=== PATIENT | female | born 1990 | race Two or more races ===

== ENCOUNTER 2017-10-25 08:00 | Outpatient (CLI) | payer OTHER ==
[2017-10-25 19:02] LABS: HGB - HEMOGLOBIN 10.3 g/dL (12.0-16.0); MEAN CORPUSCULAR HEMOGLOBIN 28.6 pg (27.0-31.0); MEAN CORPUSCULAR HGB CONC 33.4 g/dL (32.0-36.0); MEAN CORPUSCULAR VOLUME 85.6 fL (81.0-99.0); MEAN PLATELET VOLUME 8.9 fL (7.9-10.8); RED BLOOD COUNT 3.6 10^6/uL (4.20-5.40); WHITE BLOOD COUNT 9.2 x10^3/uL (4.8-10.8)
== END 2017-10-25 08:01 | disposition home or self-care (01) ==
LOC: LAB.N 08:00
PROVIDERS: ATTEND Nurse Practitioner Obstetrics & Gynecology
DX: Z34.90 Encounter for supervision of normal pregnancy, unspecified, unspecified trimester (principal); Z36.9 Encounter for antenatal screening, unspecified
CPT/HCPCS: 36415; 82950; 86850; 86900; 86901

== ENCOUNTER 2017-11-13 10:40 | Outpatient (CLI) | payer OTHER ==
[2017-11-13 10:54] VITALS: BP 128/55
[2017-11-13] MEDS ORDERED: LACTATED RINGERS 1,000 ML IV ONE (11:01)
[2017-11-13] MEDS ORDERED: ONDANSETRON 4 MG/2 ML VIAL IVP SCH (12:00)
== END 2017-11-13 13:00 | disposition home or self-care (01) ==
LOC: WFO 10:40
PROVIDERS: ATTEND Nurse Practitioner Obstetrics & Gynecology
DX: O21.2 Late vomiting of pregnancy (principal); Z3A.30 30 weeks gestation of pregnancy
CPT/HCPCS: 99213

== ENCOUNTER 2017-12-14 08:00 | Outpatient (CLI) | payer OTHER | END 2017-12-14 08:01 | disposition home or self-care (01) | LOC: LAB.R 08:00 | PROVIDERS: ATTEND Nurse Practitioner Obstetrics & Gynecology | DX: Z36.85 Encounter for antenatal screening for Streptococcus B (principal) | CPT/HCPCS: 87797 ==

== ENCOUNTER 2017-12-19 15:02 | Outpatient (CLI) | payer OTHER | END 2017-12-19 15:03 | disposition home or self-care (01) | LOC: LAB.N 15:02 | PROVIDERS: ATTEND Nurse Practitioner Obstetrics & Gynecology | DX: O99.013 Anemia complicating pregnancy, third trimester (principal) | CPT/HCPCS: 36415; 85018 ==

== ENCOUNTER 2018-01-11 03:42 | Inpatient (IN) | payer OTHER ==
--- NOTE | 2018-01-11 05:24 | HISTORY & PHYSICAL EXAMINATION ---
Admit History - Instructions [place]/Slash: -Left hand click circles element as positive or present. -Right hand click slashes element as negative or not present. - Visit Reason Visit Reason: Membranes rupture (gross rupture for CAF @ 0255) - : 1 Parity: 0 Premature: 0 Ectopic: 0 : 0 Care: positive: [facility] (transfer from [facility] @ 26 weeks' gestation), [facility]- [facility] Risk/History: positive: None Complications This : positive: None Smoking Status: Never smoker - Mother's Labs Mother's Blood Type: positive: O Mother's RH: positive: Positive GBS: positive: Group B Step Negative Rubella Status: positive: Immune Meds/Allgy - Allergies Allergies/Adverse Reactions: Allergies Allergy/AdvReac Type Severity Reaction Status Date / Time cephapirin [From Cefadyl] Allergy Rash Verified 11/13/17 10:56 erythromycin base Allergy Rash Verified 11/13/17 10:56 [From Pediazole] sulfisoxazole Allergy Rash Verified 11/13/17 10:56 [From Pediazole] Physical - Abdominal Exam Contraction Frequency (min/apart): q4-7 Contraction Intensity: positive: Mild Uterine Resting Tone: positive: Soft - Monitoring Heart Rate Baseline: 135 Strip Review: positive: Category I - Presentation Presentation: positive: Vertex - Vaginal Exam Membranes: positive: Membranes ruptured Dilation (in cm): 1 Effacement (%): 80 Station: positive: -3 Cervical Position: positive: Midposition (soft) - Speculum Exam Speculum Exam Performed: positive: No Findings: positive: Gross leak - Other Notes Labor Progress Note/Additional Text: Nancy Shah is a 27 y/o @ 39 weeks' gestation by 1st trimester US who presents today w/ complaint of SROM for CAF @ 0255. She received care @ [facility] x2 visits & transferred care to [facility] @ 26 weeks' gestation. She received consistent care for a total of 10 visits & gained a total of 27 pounds throughout the course of her . She has had an uncomplicated course & screened negative for GBS @ 36 weeks' gestation. She is cramping some & is jovan q 4-7 minutes on admission but is not in active labor. Her hope is for limited intervention & an unmedicated delivery. She is well-supported by her , Teja. 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, completing graduate education@ present ROS: GEN: No fever/chills, slight fatigue HEENT: No CHAUDHARI/vision changes RESP: Some SOB w/ exertion, no dyspnea, no cough, no wheezing CARDIAC: No CP, palpitations GI: No N/V/D : +LOF, no VB, no lesions OB: +FM, +LOF, no VB, occ cramping, no painful contractions MS: +lumbar pain, FROM SKIN: No lesion, no pruritus NEURO: No numbness, tingling, weakness PSYCH: Excited, no anxiety/depression PE: GEN: AAOx3, NAD WA gravid female HEENT: Grossly normocephalic, atraumatic RESP: Lungs b/l CTA t/o CARDIAC: RRR nls1s2, no murmur GI: abd gravid, NT, ND, palpable movement, lie longitudinal, presentation cephalic, EFW 6.5-7# : No lesion, gross SROM for CAF OB: EFM: BL 135bpm, +accels, no decels, mod ro; TOCO: UCs q4-7 minutes x60-80 seconds, palpably mild, SVE per RN: /-3, gross SROM MS: FROM t/o, no edema SKIN: +tattoos, no erythema, no lesion, warm, well-perfused, C/D/I NEURO: No focal deficit PSYCH: Pleasantly conversant w/o anxiety/depression, normal mood & affect Plan for Labor - Plan For Labor Plan for Labor: ASSESSMENT: 27 y/o @ 39 weeks' EGA by first trimester US, SROM x2.5 hours for CAF, not in labor GBS neg FHTs cat I Adequate pain control w/o analgesia/anesthesia; desires unmedicated delivery PLAN: 1. Reviewed SROM & options for management, including immediate IOL w/ po misoprostol, given cervical status, vs. expectant management, pt elects expectant management for now, will reassess @ 6-8 hours s/p SROM 2. Reviewed physiology of labor & anticipatory guidance 3. Encouraged maternal rest 4. Admit to inpt for SROM & anticipate labor 5. Limit SVE secondary to SROM no labor; reassess cervical status w/ clinical indication 6. Reviewed plan of care w/ pt, partner & RN @ bedside; all in agreement, without concerns.
[2018-01-11] MEDS ORDERED: SODIUM CHLORIDE FLUSH 0.9% 10 ML SYRINGE IVP PRN (05:35)
[2018-01-11] MEDS ORDERED: ONDANSETRON 4 MG/2 ML VIAL IVP PRN (05:37)
[2018-01-11] MEDS ORDERED: NALBUPHINE 20 MG/ML AMP IVP PRN (05:37)
--- NOTE | 2018-01-11 09:29 | PROVIDER PROGRESS NOTE ---
Labor Progress Note - Uterine Monitoring Uterine Monitoring Mode: positive: External toco : 4-7 Contraction Intensity: positive: Mild Uterine Resting Tone: positive: Soft - Monitoring Monitor Mode: positive: External ultrasound Heart Rate Baseline: 140bpm Heart Rate Variability: positive: Moderate (6-25 bmp) Accelerations: positive: Present, 15x15 Decelerations: positive: None Strip Review: positive: Category I - Vaginal Exam Dilation (in cm): deferred - Labor Progress Note Labor Progress Note/Additional Text: S: Nancy is feeling well. She reports some cramping. Some mucoid vaginal d/ c. Teja is at the bedside, supportive. O: T: 98.1, HR 60 RR 16 BP 130/70 EFM: BL 140bpm, + accels, no decels, mod ro TOCO: UCs occasional, mild to palpation SVE deferred secondary to PROM A: 27 y/o @ 39w0d by 1st trimester US SROM x7 hours, no labor GBS negative SROM for CAF, afebrile FHTs cat I Adequate pain control w/o desire for analgesia/anesthesia P: 1. Reviewed management options & risks of expectant management vs. IOL 2. Pt elects buccal misoprostol 25mcg q 4 hours, PARQ held 3. Reviewed pain management options 4. Reviewed optimal maternal positioning to encourage rotation & descent 5. Minimize SVE, reassess only w/ clear clinical indication; otherwise, continue buccal misoprostol per protocol 6. Reviewed plan of care w/ pt, partner & RN @ bedside; all in agreement, without concerns.
[2018-01-11] MEDS: LACTATED RINGERS 1,000 ML IV SCH ×3 (10:32→19:39)
[2018-01-11] MEDS: SODIUM CHLORIDE FLUSH 0.9% 10 ML SYRINGE IVP SCH ×2 (10:36→17:57)
[2018-01-11 10:50] LABS: BASOPHILS % (AUTO) 0.5 %; EOSINOPHILS # (AUTO) 0.1 10^3/uL (0.0-0.7); EOSINOPHILS % (AUTO) 0.8 %; HGB - HEMOGLOBIN 10.2 g/dL (12.0-16.0); LYMPHOCYTES # (AUTO) 2.1 10^3/uL (1.5-3.5); LYMPHOCYTES % (AUTO) 28.8 %; MEAN CORPUSCULAR HEMOGLOBIN 26.9 pg (27.0-31.0); MEAN CORPUSCULAR VOLUME 81.5 fL (81.0-99.0); MEAN PLATELET VOLUME 9.6 fL (7.9-10.8); MONOCYTES # (AUTO) 0.5 10^3/uL (0.0-1.0); MONOCYTES % (AUTO) 6.3 %; NEUTROPHILS # (AUTO) 4.7 10^3/uL (1.5-6.6); NEUTROPHILS % (AUTO) 63.6 %; PLT - PLATELET COUNT 115 10^3/uL (130-450); RED BLOOD COUNT 3.79 10^6/uL (4.20-5.40); RED CELL DISTRIBUTION WIDTH 16.2 % (12.0-15.0); WHITE BLOOD COUNT 7.3 x10^3/uL (4.8-10.8)
[2018-01-11] MEDS: miSOPROStol 100 MCG TABLET BC SCH ×4 (10:51→20:56)
--- NOTE | 2018-01-11 16:30 | PROVIDER PROGRESS NOTE ---
Labor Progress Note - Uterine Monitoring Uterine Monitoring Mode: positive: External toco Contraction Frequency (min/apart): 3-7min Contraction Intensity: positive: Mild Uterine Resting Tone: positive: Soft - Monitoring Monitor Mode: positive: External ultrasound Heart Rate Baseline: 150 Heart Rate Variability: positive: Moderate (6-25 bmp) Accelerations: positive: Present, 15x15 Decelerations: positive: None Strip Review: positive: Category I - Vaginal Exam Dilation (in cm): deferred - Labor Progress Note Labor Progress Note/Additional Text: S: Nancy reports that she is having more discomfort w/ her uterine contractions. Cramping, primarily & some LBP. Ongoing leakage of CAF. Some mucoid bloody show. Does not desire analgesia/anesthesia. Reports heartburn that is bothering her. O: VS: T: 98.4; HR 59bpm, RR 18, BP 128/83 EFM: BL 150bpm, +accels, no decels, mod ro TOCO: UCs erratic, q 3-7 min x60-80 seconds, mild to palpation SVE deferred secondary to no clinical indication A: 27y/o @ 39w0d by 1st trimester US s/p SROM @ 0255 for CAF, total ruptured duration of 13.5 hours, afebrile GBS negative FHTs cat I Adequate pain control w/o analgesia/anesthesia s/p 2 total doses of buccal misoprostol, last @ 1500, not in active labor P: 1. Continue misoprostol 25mcg buccally q 4 hours 2. Reviewed pain management options 3. Reviewed labor physiology 4. Reviewed optimal maternal positioning 5. Famotodine 20mg IVP BID PRN heartburn 6. Reassess cervical status w/ clear clinical change
[2018-01-11] MEDS ORDERED: PROMETHAZINE INJ 25 MG in SODIUM CHLORIDE 0.9% 50 ML IV PRN (18:00)
[2018-01-11] MEDS ORDERED: FAMOTIDINE 20 MG/50 ML 50 ML IV SCH (21:00)
[2018-01-12] MEDS ORDERED: OXYTOCIN 10 UNIT/ML VIAL IM ONE (00:55)
[2018-01-12] MEDS ORDERED: OXYTOCIN 10 UNIT/ML VIAL ONE (01:02)
[2018-01-12] MEDS ORDERED: LIDOCAINE 1% 50 ML MDV ONE (01:07)
[2018-01-12] MEDS ORDERED: OXYTOCIN/SODIUM CHLORIDE 500 ML IV ONE (01:33)
--- NOTE | 2018-01-12 01:53 | DELIVERY NOTE ---
Delivery Note - Labor Labor: positive: Other (induced w/ misoprostol) - Delivery Method Infant Delivery Method: positive: Spontaneous vaginal delivery - Cervical Ripening Method Cervical Ripening Method: positive: Misoprostil - Presentation Presentation: positive: Vertex, Compound (right hand), KERVIN - right occiput anterior - Nuchal Cord Nuchal Cord: positive: None - Anesthetic Anesthetic Type: Anesthetic: positive: Lidocaine - 1% plain Volume: positive: Other (10mL) - Amniotic Fluid Description Amniotic Fluid Description: positive: Clear (SROM 01/11/2018 @ 0255) - Episiotomy Type Episiotomy Type: positive: None - Laceration Laceration: positive: 2nd degree - Suture Suture Type: positive: Vicryl Suture Size: positive: 2-0, 3-0 - Delivery Outcome Delivery Outcome: positive: Livebirth - : positive: Placed in direct skin contact with mother, Stimulated, Warmed , [place] used sex: positive: Male - Cord Cord: positive: 3 vessels - Placenta Placenta: positive: Intact, Spontaneous - Estimated Blood Loss Estimated Blood Loss (in cc): 300 - Post Delivery Events Post Delivery Events: positive: No post delivery events - Delivery Comments (Free Text/Narrative) Delivery Comments (Free Text/Narrative): Nancy Shah is a 27 y/o [id number] whose care was complicated only by mild anemia. She received care in the first trimester & had dates that were concordant between ultrasound & LMP; she had consistent care x10 visits. She presented w/ complaint of LOF, beginning 2017 @ 0255, CAF. She had a total ruptured duration of 21hrs, 58minutes. She received misoprostol 25mcg buccally [id number] & entered active labor shortly after her 3rd dose at 20:56, when she was 3cm. FHTs were electronically monitored t/o & were consistently category I. She was found to be completely dilated @ 00:26, for a total first stage duration of 3hrs, 30 minutes. She did not receive analgesia or anesthesia for her labor process. She pushed w/ spontaneous urge on all fours & then utilized the stool to achieve of viable male in KERVIN position w/ compound R hand over 2nd degree perineal laceration @ 0053, for a total 2nd stage duration of 27 minutes. vigorous w/ spontaneous, lusty cry. Placed to maternal abd for drying/stim. Significant meconium passed immediately s/p delivery. Delayed cord clamping until cessation of pulsation, then cord clamped x2 by CNM, cut by FOB. 3VC noted, cord blood obtained. AMTSL w/ 10units IM Pitocin. Placenta del spont & intact, Shaquille, @ 0057, for a total 3rd stage duration of 4 minutes. Fundus firm U-1. Vagina & perineum inspected & 2nd degree perineal laceration noted, repaired s/p infiltration w/ 10mL 1% lidocaine using 2-0 & 3-0 vicryl. Hemostatic & well-approximated. EBL 300mL. Mother & infant stable. Apgars 8/9 , weight 6#2oz. Actively w/ 10/10 latch w/in 30 minutes of delivery.
[2018-01-12] MEDS ORDERED: WITCH HAZEL/GLYCERIN 1 EACH MED..PAD TOP PRN (01:57)
[2018-01-12] MEDS ORDERED: OXYTOCIN/SODIUM CHLORIDE 250 ML IV ONE (01:57)
[2018-01-12] MEDS ORDERED: MAGNESIUM HYDROXIDE 2,400 MG/30 ML UDC PO PRN (01:57)
[2018-01-12] MEDS ORDERED: HYDROCORTISONE 1% CREAM 28 GM TUBE PR PRN (01:57)
[2018-01-12] MEDS ORDERED: HYDROCORTISONE/PRAMOXINE 10 GM PR PRN (01:57)
[2018-01-12 06:25] LABS: BASOPHILS % (AUTO) 0.1 %; HGB - HEMOGLOBIN 9.2 g/dL (12.0-16.0); LYMPHOCYTES # (AUTO) 1.6 10^3/uL (1.5-3.5); LYMPHOCYTES % (AUTO) 11.7 %; MEAN CORPUSCULAR HEMOGLOBIN 26.4 pg (27.0-31.0); MEAN CORPUSCULAR HGB CONC 32.3 g/dL (32.0-36.0); MEAN CORPUSCULAR VOLUME 81.6 fL (81.0-99.0); MEAN PLATELET VOLUME 9.8 fL (7.9-10.8); MONOCYTES # (AUTO) 0.8 10^3/uL (0.0-1.0); NEUTROPHILS # (AUTO) 11.5 10^3/uL (1.5-6.6); NEUTROPHILS % (AUTO) 82.2 %; PLT - PLATELET COUNT 119 10^3/uL (130-450); RED BLOOD COUNT 3.49 10^6/uL (4.20-5.40); RED CELL DISTRIBUTION WIDTH 16.8 % (12.0-15.0)
[2018-01-12] MEDS: ACETAMINOPHEN 500 MG TABLET PO SCH ×3 (06:40→22:17)
[2018-01-12] MEDS: DOCUSATE SODIUM 100 MG CAPSULE PO SCH ×2 (09:32→22:18)
[2018-01-12] MEDS: CELECOXIB 100 MG CAPSULE PO SCH ×2 (09:33→22:17)
[2018-01-12] MEDS: SODIUM CHLORIDE FLUSH 0.9% 10 ML SYRINGE IVP SCH ×2 (10:13→10:14)
[2018-01-12] MEDS ORDERED: RHO(D) IMMUNE GLOBULIN 300 MCG SYRINGE IM SCH (13:48)
--- NOTE | 2018-01-12 14:51 | PROVIDER PROGRESS NOTE ---
Subjective - Prog Note Date Prog Note Date: 01/12/18 Prog Note Time: 14:49 - Subjective Pt reports feeling: Improved Subjective: Nancy is feeling well. She is ambulating & voiding w/o difficulty. She reports adequate pain control w/ non-opioid analgesia. She reports minimal vaginal bleeding. She is tolerating po intake & passing flatus. She is well w/o discomfort. She feels very positively about her labor/ delivery experience. Her , Teja, is present at the bedside & is involved & very supportive, practicing [id number] w/ their , Ruben. He will have 10 days off from work & Nancy's mother will arrive today to stay for 3 weeks to assist her at home w/ her . Objective - Vital Signs/Intake & Output Reviewed Vital Signs: Yes Vital Signs: Vital Signs x48h Temp Pulse Resp BP Pulse Ox 01/12/18 11:15 36.9 C 70 16 128/63 99 01/12/18 08:20 36.8 C 72 16 118/59 L 99 Intake & Output: Intake & Output 01/09/18 01/10/18 01/11/18 01/12/18 23:59 23:59 23:59 23:59 Intake Total 1500 Output Total 600 Balance 1500 -600 - Objective General Appearance: positive: No acute distress, Alert Eyes Bilateral: positive: Normal inspection, PERRL, EOMI Respiratory: positive: Chest non-tender, No respiratory distress, Breath sounds nml Cardiovascular: positive: Regular rate & rhythm, No murmur Abdomen: positive: Non-tender, No distention, Other (FFU-1) Skin: positive: Color nml, No rash, Warm, Dry Extremities: positive: Non-tender, Full ROM, Nml appearance, No pedal edema. negative: Calf tenderness Neurologic/Psychiatric: positive: Oriented x3, CN's nml (2-12), Motor nml, Sensation nml, Mood/affect nml Comments/Other: breasts b/l s, nt; nipples b/l intact & everted, colostrum readily expressed perineum w/ stitches intact & well-approximated, no erythema, mild edema, no ecchymosis; mod lochia rubra - Lab Results Fish Bones: 01/12/18 06:00 Other Labs: Lab Results x24hrs 01/12/18 01/12/18 Range/Units 06:07 06:00 WBC 14.0 H (4.8-10.8) x10^3/uL RBC 3.49 L (4.20-5.40) 10^6/uL Hgb 9.2 L (12.0-16.0) g/dL Hct 28.5 L (37.0-47.0) % MCV 81.6 (81.0-99.0) fL MCH 26.4 L (27.0-31.0) pg MCHC 32.3 (32.0-36.0) g/dL RDW 16.8 H (12.0-15.0) % Plt Count 119 L (130-450) 10^3/uL MPV 9.8 (7.9-10.8) fL Neut # 11.5 H (1.5-6.6) 10^3/uL Lymph # 1.6 (1.5-3.5) 10^3/uL [place] # 0.8 (0.0-1.0) 10^3/uL Eos # 0.0 (0.0-0.7) 10^3/uL Baso # 0.0 (0.0-0.1) 10^3/uL Absolute Nucleated RBC 0.00 x10^3/uL Nucleated RBC % 0.0 /100WBC Blood Type O NEGATIVE Maternal Bleed NEGATIVE (NEGATIVE) Assessment/Plan - Problem List (1) (normal spontaneous vaginal delivery) Impression: A: 27 y/o [id number] s/p w/ 2nd degree perineal laceration w/ repair, PPD#0 Normal uterine involution Adequate pain control w/ nonopioid analgestia well P: 1. support & anticipatory guidance provided 2. Routine care 3. Anticipate D/C home PPD#2
[2018-01-12] MEDS: FERROUS SULFATE 325 MG TABLET PO SCH (19:03)
[2018-01-13] MEDS: ACETAMINOPHEN 500 MG TABLET PO SCH (06:11)
--- NOTE | 2018-01-13 06:42 | Discharge Plan ---
Discharge Plan Disposition: 01 Home, Self Care Condition: Good Diet: Regular Activity Restrictions: pelvic rest x6 weeks Shower Restrictions: No Driving Restrictions: No Weight Bearing: Full Weight Instruction Topics: Vaginal After, Breastfeed How To, Jaundice Signs Inf , Exercises Kegel Additional Instructions or Follow Up instructions: follow up appointment w/ Marie Best CNM @ 1 week s/p delivery No Smoking: If you smoke, Please STOP! Call for help. Follow-up with: Marie Best CNM, DUNCAN [Provider Admit Priv/Credential] -
--- NOTE | 2018-01-13 06:45 | DISCHARGE SUMMARY ---
"Discharge Summary Admit Date: 01/11/18 Discharge Date: 01/13/18 Discharging Provider: DEIDRE Code Status: Attempt Resuscitation Condition at Discharge: Good Discharge Disposition: 01 Home, Self Care Discharge Facility Name: [facility] - DIAGNOSES Admission Diagnoses: LEAKAGE OF AMNIOTIC FLUID @ TERM Discharge Diagnoses with Status of Each Condition: 2ND DEGREE PERINEAL LACERATION W/ REPAIR - HPI History of Present Illness: SHAINA IS A 27 Y/O [id number] WHO WAS ADMITTED NOT IN LABOR W/ ROM @ TERM. SHE ELECTED MISOPROSTOL ADMINISTRATION BUCCALLY & RECEIVED 3 TOTAL DOSES. SHE PROGRESSED READILY TO COMPLETE DILATATION & DELIVERED VAGINALLY OVER A 2ND DEGREE PERINEAL LACERATION, WHICH WAS REPAIRED. - CONSULTS | PROCEDURES Procedures: AUGMENTATION OF LABOR FOR PROM REPAIR OF 2ND DEGREE PERINEAL LACERATION - HOSPITAL COURSE Hospital Course: , SHAINA IS AMBULATING & VOIDING W/O DIFFICULTY. HER PAIN IS WELL- CONTROLLED W/ NON-OPIOID ANALGESIA. SHE IS PASSING FLATUS & TOLERATING PO INTAKE. SHE IS WELL W/O DIFFICULTY. SHE IS WELL-SUPPORTED BY HER , WHO WILL HAVE 10 DAYS OFF TO ASSIST HER AT HOME & SHE HAS ADDITIONAL EXCEPTIONAL SOCIAL SUPPORT. SHE HAS MINIMAL LOCHIA RUBRA & MINIMAL PERINEAL DISCOMFORT. SHE IS ABLE TO FULLY ARTICULATE PP WARNING S/SX, INCLUDING PP DEPRESSION S/SX, AND PP AFTERCARE INSTRUCTIONS. SHE IS READY TO LEAVE THE HOSPITAL. - ALLERGIES Allergies/Adverse Reactions: Allergies Allergy/AdvReac Type Severity Reaction Status Date / Time cephapirin [From Cefadyl] Allergy Rash Verified 11/13/17 10:56 erythromycin base Allergy Rash Verified 11/13/17 10:56 [From Pediazole] sulfisoxazole Allergy Rash Verified 11/13/17 10:56 [From Pediazole] - PHYSICAL EXAM AT DISCHARGE General Appearance: positive: No acute distress, Alert Respiratory: positive: Chest non-tender, No respiratory distress, Breath sounds nml Cardiovascular: positive: Regular rate & rhythm, No murmur Abdomen: positive: Non-tender, No distention, Other (FF U-2) Skin: positive: Color nml, No rash, Warm, Dry Extremities: positive: Non-tender, Full ROM, Nml appearance, No pedal edema. negative: Calf tenderness Neurologic/Psychiatric: positive: Oriented x3, CN's nml (2-12), Motor nml, Sensation nml, Mood/affect nml Physical Exam Other/Comments: BREASTS B/L S, NT; NIPPLES B/L INTACT & EVERTED; COLOSTRUM READILY EXPRESSIBLE. PERINEUM W/ SUTURES INTACT, MINIMAL EDEMA, NO ERYTHEMA, MINIMAL LOCHIA RUBRA - LABS Result Diagrams: 01/12/18 06:00 - FOLLOW UP Follow Up: X1 WEEK IN OUTPT CLINIC FOR SUPPORT W/ OSKAR JIANG CNM/DUNCAN - TIME SPENT Time Spent in Discharge (Minutes): 30"
[2018-01-13] MEDS: CELECOXIB 100 MG CAPSULE PO SCH (08:25)
[2018-01-13] MEDS: FERROUS SULFATE 325 MG TABLET PO SCH (08:25)
[2018-01-13] MEDS: DOCUSATE SODIUM 100 MG CAPSULE PO SCH (08:25)
[2018-01-13 12:12] VITALS: BP 137/83
--- NOTE | 2018-01-13 14:28 | Labor Flowsheet ---
Labor Flowsheet Datetime Report Generated by CPN: 01/13/2018 14:28 Datetime: 01/13/2018 12:11 VITAL SIGNS NBP Sys/Cassidy/Mean (mmHg): 137 : 83 : 94 Pulse: 69 LaborFlag: Labor Datetime: 01/12/2018 00:52 ASSESSMENT A Monitor Mode: External US FHR Baseline Rate : 140 Variability: Moderate 6-25 bpm Comments: pushing Datetime: 01/12/2018 00:49 UTERINE ACTIVITY Monitor Mode: External Frequency (min): 2 Quality: Strong Duration (sec): 60 Pattern: Normal: <= 5 Contractions in 10 Minutes Resting Tone (Palpate): Relaxed Contraction Comments: pt pushing Datetime: 01/12/2018 00:40 Patient Care Comments: Turned and put on purple birthing seat Datetime: 01/12/2018 00:30 Decelerations: Early; Variable Patient Position/Activity: Hands-Knees Datetime: 01/12/2018 00:26 VAGINAL EXAM Dilatation (cm): 10.0 Provider Notified (Name): M. Milagrosa CNM Communication Comments: here for delivery Datetime: 01/12/2018 00:15 Accelerations: 15X15 Category: Category I Datetime: 01/12/2018 00:11 Effacement (%): 100 Station: 2 Exam by: JGenet Vails RNC COMMUNICATION Communication: RN at Bedside Notification Reason: Other Datetime: 01/11/2018 23:45 Monitor Interventions for UA: [place] Adjusted Datetime: 01/11/2018 23:29 I/O Interventions: Up to BR Datetime: 01/11/2018 23:28 Vaginal Bleeding: Small Cervix, Consistency: Soft Cervix, Position: Anterior Datetime: 01/11/2018 23:18 Respirations: 16 Temperature (C): 36.8 Datetime: 01/11/2018 23:15 FHR Baseline Changes: No Baseline Change Datetime: 01/11/2018 22:45 Oxygen Method: Room Air Datetime: 01/11/2018 21:00 SpO2 (%): 100 Datetime: 01/11/2018 20:58 Cervical Ripening Agents: Cytotec @ 25 Datetime: 01/11/2018 20:30 PAIN Pain Scale: 6 Pain Presence: Intermittent Pain Type: Contraction Pain Location: Abdomen Pain Goal: 9 Pain Relief Measures: Comfort Measures Pain Coping: Breathing Through Contractions Pain Assessment Comments: Coping well, wants unmedicated . Comfort Measures: Breathing/Relaxation; Hot Shower/Tub/Spa Datetime: 01/11/2018 19:51 Hygiene: Complete Bath Datetime: 01/11/2018 19:45 MATERNAL ASSESSMENT Level of Consciousness: Fully Conscious DTR's/Clonus: DTRs 2+ Headache: Denies Nausea/Vomiting: Present RUQ Epigastric Pain: Denies Datetime: 01/11/2018 19:04 Monitor Interventions for FHR: Ultrasound Adjusted Datetime: 01/11/2018 18:01 MEDICATIONS Analgesics/Sedatives: Phenergan (mg) @ 25 Medication Comments: hung piggy back for nausea Datetime: 01/11/2018 16:00 PATIENT CARE IV/Blood Work: IV Started Datetime: 01/11/2018 14:44 TEACHING Instructional Method: Demo; Verbal Teaching Comments: Pt and spouse educated about hand expression. Pt showed return demonstration wel l. Datetime: 01/11/2018 13:26 Temperature Route: Oral Datetime: 01/11/2018 10:27 Membrane Status: Ruptured Amniotic Fluid Color: Clear Amniotic Fluid Amount: Small Amniotic Fluid Odor: Normal Datetime: 01/11/2018 09:59 Actions for Decelerations: Side to Side Datetime: 01/11/2018 09:00 Stage of : Labor
== END 2018-01-13 13:30 | disposition home or self-care (01) | DRG 775 ==
LOC: WFO 03:42 → FBP 03:43 → WFO 03:59 → FBP 04:00
PROVIDERS: ADMIT Registered Nurse; ATTEND Registered Nurse
PROC: 10E0XZZ Delivery of Products of Conception, External Approach (ICD-10-PCS; principal; 2018-01-12)
PROC: 0KQM0ZZ Repair Perineum Muscle, Open Approach (ICD-10-PCS; 2018-01-12)
DX: O42.02 Full-term premature rupture of membranes, onset of labor within 24 hours of rupture (principal); O32.6XX0 Maternal care for compound presentation, not applicable or unspecified; O70.1 Second degree perineal laceration during delivery; Z3A.39 39 weeks gestation of pregnancy; Z37.0 Single live birth
CPT/HCPCS: 36415; 83033; 85025; 86880; 86900; 86901; 99212

== ENCOUNTER 2018-01-21 08:00 | Outpatient (CLI) | payer OTHER | END 2018-01-21 23:59 | disposition home or self-care (01) | LOC: LAB.R 08:00 | PROVIDERS: ATTEND Nurse Practitioner Obstetrics & Gynecology | DX: R82.99 Other abnormal findings in urine (principal) | CPT/HCPCS: 87086 ==

== ENCOUNTER 2018-09-12 11:25 | Emergency (ER) | payer OTHER ==
[2018-09-12 11:29] VITALS: BP 123/72
[2018-09-12] MEDS ORDERED: PROPARACAINE 0.5% OPHTH DROPS 15 ML LEFTEYE STA (12:25)
--- NOTE | 2018-09-12 13:19 | ED Physician Documentation ---
PD HPI OPHTHO - Stated complaint Stated Complaint: LT EYE IRRITATION - Chief complaint Chief Complaint: Heent - History obtained from History obtained from: Patient - History of Present Illness Timing - onset: Last night Timing - details: Abrupt onset, Still present Pain level max: 0 Pain level now: 0 Location: Left Quality / character: Aching Associated symptoms: Redness, Discharge. No: Swelling, Tearing, Matting, FB sensation, Photophobia, Double vision, Decreased vision, Loss of vision, Headache Contributing factors: No: Exposed to conjunctivitis, Recent URI, Penetrating trauma, Wears glasses, Wears contacts Recently seen: Not recently seen Review of Systems Ten Systems: 10 systems reviewed and negative Constitutional: denies: Fever, Myalgias Eyes: reports: Discharge, Irritation. denies: Loss of vision, Decreased vision, Photophobia Ears: denies: Ear pain Nose: denies: Rhinorrhea / runny nose Throat: reports: Sore throat PD PAST MEDICAL HISTORY - Past Medical History Past Medical History: No - Present Medications Home Medications: Ambulatory Orders Medication Instructions Recorded Confirmed Polymyxin B/Trimeth Ophth Drop 1 drops EACHEYE Q3H 7 Days #1 09/12/18 [Polytrim Ophth Drops] bottle - Allergies Allergies/Adverse Reactions: Allergies Allergy/AdvReac Type Severity Reaction Status Date / Time cephapirin [From Cefadyl] Allergy Rash Verified 09/12/18 11:29 erythromycin base Allergy Rash Verified 09/12/18 11:29 [From Pediazole] sulfisoxazole Allergy Rash Verified 09/12/18 11:29 [From Pediazole] - Social History Smoking Status: Never smoker PD ED PE NORMAL - Vitals Vital signs reviewed: Yes - General General: Alert and oriented X 3, No acute distress - HEENT HEENT: Atraumatic, PERRL, EOMI, Ears normal, Moist mucous membranes, Pharynx benign, Other (Fundi intact. Corneal abrasion horizontal one between 7 to 5 o'clock) - Neck Neck: Supple, no meningeal sign - Cardiac Cardiac: RRR, No murmur - Respiratory Respiratory: Clear bilaterally - Abdomen Abdomen: Normal bowel sounds, Soft, Non tender, Non distended - Derm Derm: Warm and dry - Extremities Extremities: No deformity - Neuro Neuro: Alert and oriented X 3 - Psych Psych: Normal mood, Normal affect Results - Vitals Vitals: Vital Signs - 24 hr 11/15/18 11:27 Temperature 36.2 C L Heart Rate 57 L Respiratory 18 Rate Blood Pressure 123/72 O2 Saturation 98 Oxygen O2 Source Room air Procedures - General procedure General procedure: Applied 1 drop of proparacaine ophthalmic to left eye. Fluorescin applied. Wood's lamp examination showed a corneal abrasion. Pt tolerated procedure. PD MEDICAL DECISION MAKING - ED course Complexity details: re-evaluated patient (tolerated procedure. nad), considered differential (conjunctivitis, sty, corneal abrasion, foreign body), d/w patient Departure - Departure Disposition: 01 Home, Self Care Clinical Impression: Corneal abrasion, left Qualifiers: Encounter type: initial encounter Qualified Code(s): S05.02XA - Injury of conjunctiva and corneal abrasion without foreign body, left eye, initial encounter Condition: Good Prescriptions: Polymyxin B/Trimeth Ophth Drop [Polytrim Ophth Drops] 1 drops EACHEYE Q3H 7 Days #1 bottle Comments: follow up w/ your pcp and get a referral to an eye doctor in 1 week. if worse return to the e.r. Discharge Date/Time: 09/12/18 13:49
== END 2018-09-12 13:59 | disposition home or self-care (01) ==
LOC: ED 11:25
DX: S05.02XA Injury of conjunctiva and corneal abrasion without foreign body, left eye, initial encounter (principal)
CPT/HCPCS: 99283; J3490